=== PATIENT | male | born 1970 ===

== ENCOUNTER 2020-10-16 16:50 | Outpatient (REF) | payer SELFPAY ==
[2020-10-17 13:52] LABS: COVID-19 RT-PCR UVMMC Result Negative (Negative)
== END 2020-10-16 16:51 | disposition home or self-care (01) ==
LOC: NCHCN 16:50
PROVIDERS: Visit Provider Internal Medicine
DX: Z20.822 Contact with and (suspected) exposure to COVID-19 (principal)
CPT/HCPCS: U0003